=== PATIENT | male | born 1955 | race Caucasian/White ===

== ENCOUNTER 2023-05-04 08:50 | Inpatient (IN) | payer MEDICARE, OTHER, SELFPAY ==
[2023-05-03] VITALS (13 sets, daily range): BP systolic 115–170; BP diastolic 73–104; BMI 33.6; BMI 32.6
--- NOTE | 2023-05-03 11:02 | ED.GENMED ---
History of Present Illness
General
Chief Complaint: Fall
Source: patient
Time Seen by Provider: 05/03/23 10:35
Travel History
Have you had any contact with someone who has COVID-19?: No
Do you have any symptoms of coronavirus? Fever > 100 degrees, chills, cough, shortness of breath, sore throat, loss of taste or smell, muscle aches, or headache?: No
History of Present Illness
History of Present Illness:
67-year-old male presents to the emergency room after being out at the park for an extended period time. Patient typically goes for a walk for half an hour and returned home. After 90 minutes his became concerned and called. The patient
answered the phone and was confused. He evidently told her he had a slip and fall on ice striking the back of his head. He could not find his car. went to the park and did find him. He was awake and interactive but did seem confused. He
was also complaining being very cold. Upon arrival to the emergency room is awake and interactive. believes he is at his baseline at this time. Patient does take Plavix but denies any other oral anticoagulant
Past History
Past History
ED Past Medical History: HTN and NIDDM
ED Past Surgical History: Other (Hernia repair)
Social History
Tobacco: Non-smoker
Living: with family
Phy Exam
Physical Exam
Physical Exam:
General: Awake, Alert, Oriented X3. No acute distress.
Vitals: unremarkable
Head: Atraumatic no significant cephalohematoma
Eyes: Pupils equal, EOMI
Throat: Airway intact, no exudates
Neck: Trachea midline
Lungs: Clear and equal b/l
Heart: Regular rate, no murmurs
Abd: Soft, Nontender, No pulsatile mass
Neuro: Cranial nerves intact, muscle strength equal bilaterally, cerebellar exam normal
Skin: Warm, dry, no rash
Extremities: pulses equal b/l, no edema
Course
Orders/Labs/Results
Orders:
Orders
05/03/23 10:25
CT Head W/o Iv Contrast Urgent
Comment:
Reason For Exam: fall on plavix, confusion
05/03/23 11:00
MR Brain Without Contrast Urgent
Comment:
Reason For Exam: eval for possible falcian suddural
OK for patient to be off Cardiac Monitoring for MRI: Yes
Recent pill cam endoscopy?: No
Pacemaker/Defibrillator?: No
Brain Aneurysm Clips?: No
Have you ever worked with metal? grinding metal? welding?: No
Cochlear(ear) implants?: No
Does Pt have a Temp Sensing Cath?: No
Does the patient have IV access?: Yes
Does the patient have any stents?: No
05/03/23 13:54
Admit/Transfer Patient As Directed
Co-Sign Provider:
Level of Care: Observation services
Assign to:: Telemetry
Physician / Group: Rios
Diagnosis: Subdural Hemorrhage
Reason for Telemetry: CVA/TIA
Date to Stop Telemetry: 05/06/23
Time to Stop Telemetry: 11:00
05/03/23 13:55
Code Status As Directed
Resuscitation Status: Full Code
05/03/23 14:01
CBC/With Diff [Complete Blood Count/With Diff] Stat
CMP [Comprehensive Metabolic Panel] Stat
05/06/23 11:00
DC Protocol for Telemetry ONCE
Vital Signs
Initial and Last Documented VS:
Initial Vital Signs
Pulse Resp BP Pulse Ox
84 17 170/104 97
05/03/23 10:24 05/03/23 10:24 05/03/23 10:24 05/03/23 10:24
Last Documented Vital Signs
Temp Pulse Resp BP Pulse Ox
97.6 F 85 19 155/82 99
05/03/23 10:53 03/24/24 13:46 05/03/23 13:46 05/03/23 13:46 05/03/23 13:46
MDM/Problems Addressed
Differential Diagnosis Includes:
concussion, subdural, intra-cranial bleed
MDM/Problems Addressed:
Patient presents after slipping on ice and striking his head. CT was questionable for a parafalcine subdural. MRI was obtained which confirms a diagnosis. Discussed with neurosurgery. Observe here at [place] as it is quite small and unlikely
to require any sort of intervention.
*Radiology
Radiology exam reviewed: radiology read reviewed
*Pulse Oximetry
Patient hypoxic: no
*Critical Care Note
Total Time (30-74mins, 75-104mins- exclusive of procedures): 35 min
comment:
Critical care statement: A total of 35 minutes of critical care time was provided for this patient. This includes management of unstable vital signs, evaluation of the patient at bedside, reviewing the patient's pertinent medical records, discussion
with consultants, review of old EKGs and review of pertinent medical records. This time with separate from time utilized to perform the aforementioned documented procedures
ED Attending Note
-
Portions of this chart may have been created with voice recognition software.� Occasional wrong word or��sound alike� substitutions may have occurred due to the inherent limitations of voice recognition software.
Discharge Plan
Departure
Patient Disposition: Admit
Date of Disposition: 05/03/23
Time of Disposition: 13:21
Presentation/result/management discussed w/ accepting MD/DO: Hospitalist
Condition: Fair
Discharge Problem:
Subdural bleeding, Head injury
Interventions
Interventions:
*Risk Screen - Suicide Last Done: 05/03/23 10:48
*General Assessment Last Done: 05/03/23 10:48
*Neglect/Abuse Screening Last Done: 05/03/23 10:48
ED- Fall Risk Assessment Last Done: 05/03/23 10:48
*ED COVID-19 Vaccine History Last Done: 05/03/23 10:48
ED-Musculoskeletal Assessment Last Done: 05/03/23 10:49
ED- Neurological Assessment Last Done: 05/03/23 10:52
ED-Skin Assessment Last Done: 05/03/23 10:49
--- NOTE | 2023-05-03 13:57 | HPS.HSE ---
Addendum entered and electronically signed by Gallito Nation MD 05/03/23 14:36:
I saw and examined the patient.
The COMMUNICATIONS DEPARTMENT HEAD or PA's note was reviewed and I agree with the note.
Comment: Pt after mechanical fall found by patient's spouse to be confused after did not come back from a walk usually takes 1/2-hour unclear if he was down on the ground for period of time he was, which is 90 minutes presented to the ED supposedly
back to his baseline but find that he still has some confusion and poor memory to the event. No focal changes on exam no apparent injury to scalp or elsewhere as he fell backwards initial CT imaging showed question of a small subdural hemorrhage
in the falx cerebri was substantiated on MRI. ED staff called neurosurgical on-call who reviewed imaging and felt only need for for observation status neurochecks and repeat CT imaging in a.m. Of note the patient suffered a left pontine stroke
back in July 2022 at that time manifested with some dysarthria that has recovered he has some residual weakness on the right side and also nasolabial droop. Patient after CVA completed a course of dual antiplatelet therapy after 3 months and is on
only on clopidogrel presently which will be held he did not take it today we will repeat another CT scan in a.m. treat underlying hypertension with prior combination of valsartan hydrochlorothiazide continue statin continue diabetic management.
Provide findings at this time are in relation to a postconcussive presentation nonetheless we will have neurosurgery follow-up recommendations regarding resumption of clopidogrel.
Original Note:
Family Physician
-
Family Physician: Alden Noriega
Chief Complaint
-
Fall
History of Present Illness
Patient is a 67-year-old with past medical history of hypertension, hyperlipidemia, diabetes mellitus and left pontine stroke in July 2022 who presents with confusion following a fall earlier today. Patient was out taking a walk in the park when he
slipped and fell on some ice. He states he struck the back of his head during the event. He usually is gone for about 30 minutes, but when he did not return after 90 minutes his became concerned. She called him on his cell phone and he
reported that he fell, was confused and could not find his car. She was able to find him in the park, and subsequently he was brought to the emergency department for evaluation. Workup in the emergency department revealed small subdural hemorrhage
in the falx cerebri.
Medical History
Past Medical History
Past Medical History: Reports Other
Additional Past Medical History:
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
Essential Hypertension
Hyperlipidemia
Diabetes Mellitus, Type II
Past Surgical History: Reports Other
Additional Past Surgical History:
Hernia Repair
Social History
Tobacco: Non-smoker
Personal:
Living: With Family
Family History
Family History: Not pertinent
Allergies / Home Medications
Allergies reflects when Allergies were last updated in [facility].
Home Medications with original date entered in [facility]
Allergy/Medication List:
Allergies
Allergy/AdvReac Type Severity Reaction Status Date / Time
No Known Allergies Allergy Verified 05/03/23 10:23
Home Medications
hydrochlorothiazide 12.5 mg tablet 25 mg PO HS Blood Pressure 07/21/22
metformin 1,000 mg tablet 1,000 mg PO DAILY Diabetes 07/21/22
rosuvastatin 5 mg tablet 5 mg PO Q48H High Cholesterol 07/21/22
clopidogrel 75 mg tablet 75 mg PO DAILY #30 tabs 07/23/22
valsartan 320 mg tablet 320 mg PO HS 05/03/23
Review of Systems
-
A 12 point ROS was completed and negative except as noted: Yes
Constitutional: Denies Fever or Chills
Respiratory: Denies Cough or Trouble Breathing
Cardiac: Denies Chest Pain or Palpitations
Neurological: Denies Dizzy, Weakness or Numbness
Physical Exam
Vital Signs
Vital Signs
Temp Pulse Resp BP Pulse Ox
97.6 F 85 19 155/82 99
05/03/23 10:53 05/03/23 13:46 05/03/23 13:46 05/03/23 13:46 05/03/23 13:46
Physical Exam
General: Comfortable and Conversant
HEENT: Anicteric and Moist mucous membranes
Respiratory: Clear and Non Labored Respirations
Cardiac: S1/S2 and Regular Rhythm; No Murmur
GI: Soft and Non Tender
Rectal: Deferred by Provider
Musculoskeletal: No Clubbing, No Cyanosis and No Edema
Skin: Warm and Dry
Neuro: Awake, Alert, Oriented and No Motor Deficits; No Slurred Speech or Facial Droop
Psych: Calm
Data Reviewed
-
CT Scan: Report Reviewed by me
MRI: Report Reviewed by me
Impression/Plan
-
Acute Subdural Hemorrhage involving Cerebral Falx
-Consult Neurosurgery
-Hold Plavix
-Monitor neuro-checks
-Recheck Head CT in AM
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
-Plavix on hold as above
Essential Hypertension
-Continue valsartan and HCTZ
Hyperlipidemia
-Continue rosuvastatin
Diabetes Mellitus, Type II
-Continue metformin
-Monitor sugars and continue coverage insulin
DVT proph: SCDs
Code Status: Full Code
[2023-05-03 15:03] LABS: % Basophils 0.3 % (0-2); % Eosinophils 0.5 % (0-6); % Immature Granulocytes 0.2 % (0-0.5); % Lymphocytes 27.8 % (20.5-51.1); % Neutrophils 65.2 % (42.2-75.2); Absolute Eosinophils 0.1 10^3/uL (0-0.7); Absolute Lymphocytes 2.7 10^3/uL (1.2-3.4); Absolute Monocytes 0.6 10^3/uL (0.1-0.6); Absolute Neutrophils 6.3 10^3/uL (1.4-6.5); Hematocrit 45.3 % (39.0-52.0); Hemoglobin 15.2 g/dL (13.0-18.0); Mean Corp Hgb Conc. 33.6 g/dL (33.0-37.0); Mean Corpuscular Hgb 29.6 pg (27.0-31.0); Mean Corpuscular Volume 88.1 fL (80.0-94.0); Mean Platelet Volume 10.5 fL (7.4-10.4); Nucleated Red Blood Cells % 0 % (-); Platelet Count 184 10^3/uL (130-400); Red Blood Cell Count 5.14 10^6/uL (4.70-6.10); Red Cell Dist. Width 12.7 % (11.5-14.5); White Blood Cell Count 9.6 10^3/uL (4.8-10.8)
--- NOTE | 2023-05-03 15:10 | CON.NS ---
Consultation
-
Date/Time Consultation Performed: 15:10, 05/03/2023
Performing Provider: Alex
Chief Complaint
History of Present Illness
This is a neurosurgical consultation on a 57-year-old gentleman, with past medical history of pontine stroke, diagnosed in July 2022 on Plavix who presents after sustaining mechanical fall earlier today. Fall was approximate 9 AM. He was taking a
walk in the park, where he slipped and fell. He was in contact with his , and it was reported that he was confused and could not find his car. He presented here to [facility], where a CT scan of the head demonstrated a possible
parafalcine subdural hematoma. He ultimately underwent an MRI of the brain which demonstrated thin/sliver subdural hematoma, but also demonstrated an area of DWI changes within the right frontal lobe. Patient being admitted. Plavix is on hold.
Patient seen and examined. Admits to mild headache. Reports that he did likely hit the back part of his head when he fell. Cannot recall events surrounding the time and around his fall. Reports that he did see a [facility] neurologist 2 weeks ago, and
during evaluation, he was told that he may have likely a 'vascular arterial type of disease' that causes mini strokes.
Review of Systems
-
Attempted review of systems including constitutional, ENT, cardiovascular, respiratory, GI, , neurologic, endocrinologic, hematologic, psychiatric was performed, was negative, except for stated in HPI.
Medication and Allergies
Home Medications
Home Medications
Medication Instructions Recorded
hydrochlorothiazide 12.5 mg tablet 25 mg PO HS Blood Pressure 07/21/22
metformin 1,000 mg tablet 1,000 mg PO DAILY Diabetes 07/21/22
rosuvastatin 5 mg tablet 5 mg PO Q48H High Cholesterol 07/21/22
clopidogrel 75 mg tablet 75 mg PO DAILY #30 tabs 07/23/22
valsartan 320 mg tablet 320 mg PO HS 05/03/23
Allergies
Allergies
Allergy/AdvReac Type Severity Reaction Status Date / Time
No Known Allergies Allergy Verified 05/03/23 10:23
Physical Exam
-
Exam:
Awake, alert, oriented x 3.
Pupils are equal and reactive.
Extraocular movements are full without any nystagmus.
Slight right facial droop, unclear whether this is baseline?
Tongue midline
Motor: 5/5 strength in upper extremities without any pronator drift. 5/5 strength in bilateral lower extremities
Gait not tested
Reflexes symmetric in both upper and lower extremities
Head is normocephalic, small area of erythema over vertex.
Neck is supple
Breathing nonlabored
Abdomen is soft
Extremities are warm
Exams:� CT Head W/o Iv Contrast
PROCEDURE: CT Head W/o Iv Contrast
CLINICAL INDICATION: Patient status post fall. Patient is on blood thinners, on Plavix. Increased confusion. History of previous CVA.
TECHNIQUE: A CT examination of the head was performed without intravenous contrast. Coronal reformatted images were obtained. Automatic exposure control radiation dose reduction technology was utilized.
COMPARISON: Brain MRI 07/22/2022. Head CT 07/21/2022.
FINDINGS:
The ventricles are mildly diffusely enlarged, no midline shift.� There is mild deepening of the sulci diffusely.� There is moderate decrease in attenuation in the periventricular and deep white matter consistent with the previous MRI, most
consistent with moderate chronic microangiopathic ischemia.
Very subtle increased density and mild thickening of the anterior falx, best seen on the coronal images. A very subtle subdural hemorrhage cannot be excluded.
No findings to suggest an acute infarct.
There is no mass or mass effect.
The visualized portions of the paranasal sinuses and orbits are� clear of an acute process. No calvarial fracture.
IMPRESSION:
1. � There is very subtle increased density and mild thickening of the falx, most prominent anteriorly, and a subtle subdural hemorrhage cannot be excluded. MRI is recommended, although acute hemorrhage may be less evident initially.
2. � No findings to suggest an acute infarct.
3. � No mass or mass effect.
4. � No calvarial fracture.
[place] text results to Dr. Engel in the emergency room at 10:50 AM.
Electronically signed by Pennie Herzog MD 05/03/2023 10:52 AM
[employer] Dose Report: Up-to-date CT equipment and radiation dose reduction techniques were employed. CTDIvol: 57.0 mGy. DLP: 823 mGy-cm.
Dictated By: Mino ZARATE,Pennie Parker.
Dictated Date & Time: 05/03/23 1042
Exams:� MR Brain Without Contrast
CPT: 63498
PROCEDURE: MR Brain Without Contrast
CLINICAL INDICATION: Possible falcine subdural. Patient fell. On blood thinners. History of previous subacute infarct in the left salo. Seen on prior brain MRI.
TECHNIQUE: Unenhanced MRI imaging of the brain was performed. Images were obtained in multiple planes using a variety of pulse sequences including T1 weighting, T2 weighting, FLAIR, and diffusion-weighted imaging. Scanned on a 1.5 Charis magnet.
COMPARISON: CT performed earlier today. Brain MRI and MRA 07/22/2022.
FINDINGS: Increased signal intensity on the FLAIR images in the falx, consistent with the concern for a subtle subdural hemorrhage on CT earlier today.
There is a tiny focus of restricted diffusion with decreased signal intensity on the ADC images on axial image 22 series 302 consistent with a tiny focus of nonhemorrhagic infarct. In addition there is a small linear focus of increased signal
intensity in the left cerebellar peduncle, axial image 8 series 302, this does not have decreased signal on the ADC images and may represent a previous area of infarct
The ventricles are mildly enlarged diffusely, without midline shift.� There is mild deepening of the sulci diffusely. There is a significant increase in T2 signal intensity within the deep white matter consistent with moderate chronic
microangiopathic ischemia, similar to the previous exam.
There is no mass or mass effect. � Tiny focus of hemosiderin in the right thalamus unchanged from prior.
The visualized portions of the paranasal sinuses and orbits are within normal limits.� Mastoid air cells are clear.
There is appropriate flow-void in the vessels at the base of the skull.
IMPRESSION:
1. � Tiny focus of restricted diffusion in the high right frontal lobe at the vertex adjacent to the falx consistent with a tiny focus of nonhemorrhagic infarct.
2. � Mild thickening and abnormal signal intensity of the falx, consistent with acute subdural hemorrhage. No midline shift or adjacent parenchymal mass effect.
3. � Chronic Moderate volume loss. 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
4. � Chronic microhemorrhage in the right thalamus.
5. � Results to Dr. Engel in the emergency room at 12:30 PM
I reviewed the noncontrast CT scan of the head performed on 05/03/2023 as well as the brain MRI performed and agree with report above.
Problems
-
Problem Status Onset Code
Subdural bleeding I62.00
Head injury S09.90XA
Assessment / Plan
-
This is a 67-year-old gentleman with a past medical history of left pontine stroke, who now presents after fall, and confusion. Imaging demonstrates a small parafalcine subdural hematoma, but also MRI concurrently confirms a acute Area of
restricted diffusion in the high right frontal lobe which is suspicious for infarction. The small parafalcine subdural hematoma is currently nonoperative in nature.
Recommend neurology consultation regarding workup and management of this new acute infarction. If this is indeed deemed an acute stroke/infarction, risks versus benefits of holding antiplatelet therapy for 1 to 2 weeks versus restarting
antiplatelet therapy as soon as possible must be considered.
At the present time, hold Plavix until repeat CT scan of the head on 05/04/2023.
Maintain close neurological monitoring/checks/IMU.
Maintain head of bed elevation greater than 30 degrees.
Maintain systolic blood pressure strictly less than 140.
Will follow-up.
Patient can go home per my specialty: No
[2023-05-03 15:17] LABS: ALT (SGPT) 19 U/L (0-50); AST (SGOT) 23 U/L (17-59); Albumin 4.1 g/dl (3.5-5.0); Alkaline Phosphatase 66 U/L (38-126); Blood Urea Nitrogen 21 mg/dl (9-20); Calcium 9.3 mg/dl (8.4-10.2); Carbon Dioxide 29 mmol/L (22-30); Chloride 102 mmol/L (98-107); Estimated Creatinine Clearance 86 ml/min; Glucose 185 mg/dl (70-99); Potassium 4.1 mmol/L (3.5-5.1); Sodium 136 mmol/L (135-145); Total Bilirubin 1.2 mg/dl (0.2-1.3); eGFR > 60.00
--- NOTE | 2023-05-03 15:57 | CON.NEURO ---
Consultation
Order
Date of Consultation: 05/03/23
Reason for Consult: Stroke
Neurology consultation
CC: none
HPI: This is a 67-year-old RH man who presented to [facility] on May 03, 2023 with a fall.
According to the patient he was walking in a park before he 'must have slipped' and sustained and administered his fall earlier today. According to Ms. Larson the patient contacted her because he could not find his car and sounded confused. No
reports of motor, sensory, visual deficits
Mr. Larson has a history of the left pontine stroke(07/2022) presenting with right-sided mild hemiparesis with no residual deficits. He states that he has been compliant with the plan Plavix.
ER VS: 170/104, 84, afebrile
PDMP: none
Labs: Glucose�185, normal WBCs,
Brain MRI wo margaret(05/03/2023)-a focus of restricted diffusion in the high right frontal lobe at the vertex adjacent to the falx. Mild thickening and abnormal signal intensity of the falx, consistent with acute subdural hemorrhage.
Chronic moderate volume loss. 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
PMH: left pontine stroke(07/2022), HTN, DLP, DM, sodium, creatinine,
PSH: hernia repair
SH: ; non-smoker; retired district manager primary care sales; plays drums
FH: Father�stroke
All:NKDA
ROS:Constitutional: Negative. Negative for chills, fever and unexpected weight change.
HENT: Negative for ear pain, hearing loss, tinnitus and trouble swallowing.
Eyes: Negative. Negative for photophobia, pain and visual disturbance.
Respiratory: Negative for cough, choking and shortness of breath.
Cardiovascular: Negative for chest pain, palpitations and leg swelling.
Gastrointestinal: Negative for abdominal pain and vomiting.
Endocrine: Negative. Negative for cold intolerance.
Genitourinary: Negative for dysuria, flank pain and urgency.
Musculoskeletal: Negative for back pain, gait problem, neck pain and neck stiffness.
Skin: Positive for occipital ecchymosis
Allergic/Immunologic: Negative. Negative for immunocompromised state.
Neurological: Negative for dizziness, tremors, seizures, speech difficulty, numbness and headaches.
Psychiatric/Behavioral: Negative for behavioral problems, confusion and hallucinations.
General: Well developed. In no acute distress.
Cardio: Regular rate and rhythm without murmur. Extremities are without cyanosis or edema.
Neuro:
Mental Status: Alert, oriented to person, place, and date. Increased processing time. Impaired comprehension. Follows simple commands consistently. Nonfluent. No hemineglect
Cranial Nerves: Pupils are equally round and reactive to light. EOMs full. Visual olvera full to confrontation. No ptosis. No nystagmus. V1-V3 intact to light touch and pinprick bilaterally, symmetric. Face symmetric. Normal hearing AU. The
palate elevated well. SCMs and traps 5/5. Tongue midline. No dysarthria.
Motor: Normal bulk and tone. No pronator or arm drift. Strength 5/5 throughout. No clonus.
Reflexes: Mild grasp bilaterally
Sensory: Normal vibration at the toes
Coordination: No dysmetria or tremor.
Gait: deferred
Skin-occipital ecchymosis, no tongue laceration
Assessment and Plan:
I. Acute R CRISTHIAN territory infarct
II. Acute traumatic falcine SDH
III. Encephalopathy (vascular, posttraumatic?)
-Continue Telemetry monitoring.
-EKG
-Fall precautions.
-Hold antithrombotics
-repeat CT head in 24h from the initial one.
-Lipitor 40 mg QHS.
-Carotid artery Doppler ultrasound
-Cardiology consult for cardioembolic work up
-Please check HbA1C, LDL, b12, TFTs
-PT.
-DVT prophylaxis.
I personally reviewed all radiology and labs along with past medical records pertinent to current medical problems. Total time spent in patient care is 60 minutes.
Thank you for allowing us to participate in the care of this patient. We will continue to follow. Please do not hesitate to contact us with any questions or concerns.
Subjective/Objective
Subjective Data
Date of Service: May 03, 2023
Objective Data
Vital Signs
Temp Pulse Resp BP Pulse Ox
36.4 C 90 27 115/73 97
05/03/23 10:53 05/03/23 15:30 05/03/23 15:30 05/03/23 15:11 05/03/23 15:30
Lab Results
05/03/23 14:41
05/03/23 14:41
Sodium 136 mmol/L (135-145) 05/03/23 14:41
Potassium 4.1 mmol/L (3.5-5.1) 05/03/23 14:41
BUN 21 mg/dl (9-20) H 05/03/23 14:41
Glucose 185 mg/dl (70-99) H 05/03/23 14:41
Calcium 9.3 mg/dl (8.4-10.2) 05/03/23 14:41
Patient Allergies
No Known Allergies Allergy (Verified 05/03/23 10:23)
Medications
-
Home Medications
Medication Instructions Recorded
hydrochlorothiazide 12.5 mg tablet 25 mg PO HS Blood Pressure 07/21/22
metformin 1,000 mg tablet 1,000 mg PO DAILY Diabetes 07/21/22
rosuvastatin 5 mg tablet 5 mg PO Q48H High Cholesterol 07/21/22
clopidogrel 75 mg tablet 75 mg PO DAILY #30 tabs 07/23/22
valsartan 320 mg tablet 320 mg PO HS 05/03/23
Vital Signs and Labs
-
Vital Signs and Labs:
Vital Signs
Temp Pulse Resp BP Pulse Ox
36.4 C 90 27 115/73 97
05/03/23 10:53 05/03/23 15:30 05/03/23 15:30 05/03/23 15:11 05/03/23 15:30
Lab Results
05/03/23 14:41
05/03/23 14:41
Sodium 136 mmol/L (135-145) 05/03/23 14:41
Potassium 4.1 mmol/L (3.5-5.1) 05/03/23 14:41
BUN 21 mg/dl (9-20) H 05/03/23 14:41
Glucose 185 mg/dl (70-99) H 05/03/23 14:41
Calcium 9.3 mg/dl (8.4-10.2) 05/03/23 14:41
Home Medications
-
Home Medications
hydrochlorothiazide 12.5 mg tablet 25 mg PO HS Blood Pressure 07/21/22
metformin 1,000 mg tablet 1,000 mg PO DAILY Diabetes 07/21/22
rosuvastatin 5 mg tablet 5 mg PO Q48H High Cholesterol 07/21/22
clopidogrel 75 mg tablet 75 mg PO DAILY #30 tabs 07/23/22
valsartan 320 mg tablet 320 mg PO HS 05/03/23
[2023-05-03] MEDS: CRESTOR 5 MG PO (17:43)
[2023-05-03] MEDS: APRESOLINE 5 MG IV (17:43)
[2023-05-03] MEDS: NOVOLOG FLEXPEN-MODERATE RESISTANCE SC (17:47)
[2023-05-03 17:56] LABS: Glucose - Point of Care 111 mg/dl (70-99)
--- NOTE | 2023-05-03 18:12 | PTCARENOTE ---
Rec'd pt on admission from ED. Oriented to unit. Hydralazine given as ordered for BP 159 systolic. Pt AAO x3, neuro intact. Educated on HOB rest to 30 degrees. lungs are clear. Pt ambulated with min assist from stretcher to bed. Resting comfortably.
[2023-05-03 18:55] LABS: HDL Cholesterol 84 mg/dl; LDL Cholesterol, Calculated 34 mg/dl; Total Cholesterol 135 mg/dl (50-199); Triglyceride 85 mg/dl (10-149); Very Low Density Lipoprotein 17 mg/dl (0-30)
[2023-05-03 19:28] LABS: TSH Reflex To Free T4 1.52 uIU/ml (0.47-4.68)
[2023-05-03 19:47] LABS: Vitamin B12 443 pg/ml (239-931)
[2023-05-03] MEDS: DIOVAN 320 MG PO (21:39)
[2023-05-03] MEDS: ORETIC 25 MG PO (21:40)
[2023-05-03 21:47] LABS: Glucose - Point of Care 133 mg/dl (70-99)
[2023-05-04] VITALS (14 sets, daily range): BP systolic 108–156; BP diastolic 73–110; PULSE 88; O2SAT 97; BMI 32.5
[2023-05-04] MEDS: APRESOLINE 5 MG IV ×2 (00:40→10:08)
[2023-05-04] MEDS: NOVOLOG FLEXPEN-MODERATE RESISTANCE 1 UNITS SC (07:21)
[2023-05-04 07:31] LABS: Glucose - Point of Care 152 mg/dl (70-99)
[2023-05-04] MEDS: GLUCOPHAGE 1000 MG PO (08:08)
--- NOTE | 2023-05-04 08:22 | W.PN.NEURO.1 ---
Today's Communication / Plan
-
-Monitor on cardiac telemetry and check transthoracic echocardiogram
-Neurologic checks NIH stroke scale
-Would maintain systolic blood pressure less than 140
-Goal normoglycemia
-Continue statin
-Appreciate neurosurgery input
-Secondary prevention of stroke treating diabetes, hyperlipidemia, hypertension
Given ischemic stroke finding would aim to restart clopidogrel relatively soon, would favor restarting clopidogrel 3 to 5 days [address] the initial CT head finding on 05/02
Will follow
Neuro Assessment/Plan
Assessment
67-year-old male with a previous minor stroke July 2022 maintained on chronic Plavix therapy as well as history of hypertension diabetes presenting the hospital after a fall and mild confusion afterwards he says that he slipped on some black ice
walking around late [place] over the weekend
CT head noncontrast showed a midline subdural hematoma near the falx. Has been stable on repeat CT head and brain MRI.
Brain MRI shows a small acute infarction on the right frontal lobe near the midline.
Carotid ultrasound less than 50% stenosis bilaterally.
Patient does not recall any focal symptoms of left-sided leg weakness, did show some confusion afterwards which is improved.
It is possible that the acute stroke led to confusion and balance or ambulatory issues then leading to his fall and the subdural hematoma from the fall. Less likely that the head injury provoked the ischemic stroke.
Patient's brain MRI shows significant small vessel disease throughout the white matter of the hemispheres bilaterally
Subjective/Objective
Subjective Data
Date of Service: May 04, 2023
No acute events, mild headache
Objective Data
Vital Signs
Temp Pulse Resp BP Pulse Ox
98.6 F 95 26 116/80 94
05/04/23 03:59 05/04/23 04:00 05/04/23 04:00 05/04/23 04:00 05/04/23 04:00
Lab Results
05/03/23 14:41
05/03/23 14:41
Sodium 136 mmol/L (135-145) 05/03/23 14:41
Potassium 4.1 mmol/L (3.5-5.1) 05/03/23 14:41
BUN 21 mg/dl (9-20) H 05/03/23 14:41
Glucose 185 mg/dl (70-99) H 05/03/23 14:41
Calcium 9.3 mg/dl (8.4-10.2) 05/03/23 14:41
LDL Cholesterol, Calc 34 mg/dl 05/03/23 17:56
Vitamin B12 443 pg/ml (239-931) 05/03/23 17:56
Patient Allergies
No Known Allergies Allergy (Verified 05/03/23 10:23)
Review of Systems
-
History Source: Patient
All other systems: Reviewed and negative
Constitutional: No Symptoms
EENT: No Symptoms Reported
Respiratory: No Symptoms
Cardiac: No Symptoms
Abdomen/GI: No Symptoms
Genitourinary: No Symptoms
Musculoskeletal: No Symptoms
Skin: No Symptoms
Neuro: Headache
Endocrine: No Symptoms
Hematologic / Lymphatic: No Symptoms
Allergy / Immunology: No Symptoms
Physical Exam
-
General: Comfortable
Eyes: No Ptosis
HEENT: Normocephalic
Neck: No Bruits Bilaterally
Respiratory: Clear to Auscultation
Cardiac: Regular Rhythm
GI: Normal Bowel Sounds
Skin: Unremarkable
Extremities: No Clubbing
Psych: Unremarkable
Extended Neurological Exam
Mood & Affect: Mood Unremarkable and Affect Unremarkable
Attention Span & Concentration: Awake, Alert and Interactive
Memory: Unremarkable
Tremor: Hand Tremor Absent
Involuntary Movement: None
Speech: Quality Unremarkable and Quantity Unremarkable; Negative Expressive Aphasia, Receptive Aphasia or Dysarthric
Cranial Nerve II: Left Eye: Pupillary Reactivity Unremarkable and Pupillary Size Unremarkable
Cranial Nerve II: Right Eye: Pupillary Reactivity Unremarkable and Pupillary Size Unremarkable
Cranial Nerves III, IV, : Extraocular Movement: Extraocular Movement Full in all Directions
Cranial Nerve VII: Facial Symmetry: Normal Facial Symmetry
Muscle Strength, Overall: Full Throughout
Muscle Bulk & Tone: Bulk Unremarkable
Pronator Drift: No Drift in Upper Extremities
Deep Tendon Reflexes: Trace Throughout
Vibration Sensation: Unremarkable
Touch Sensation: Unremarkable
Coordination: Rwojkb-bibu-tejetn Testing Unremarkable
Babinski Sign: Absent Bilaterally
Data Reviewed
-
CT Head: Report Reviewed and Image Reviewed
MRI Head: Report Reviewed and Image Reviewed
Carotid Ultrasound: Report Reviewed
Echocardiogram: Ordered and Pending
Labs: Report Reviewed
--- NOTE | 2023-05-04 09:40 | CM ---
Patient seen at bedside. Patient states he lives with in a 2 story home with no DME. Patient PCP is Dr. Noriega and patient uses the [facility] on [facility]. Patient S/p CVA in July and was admitted under OBS 05/03/23 but now changed to INP
status per orders. CM updated patient. 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 Patient stated that he was awaiting results of testing. CM will continue to follow for discharge planning needs.
Plan; home with VN vs outpatient PT/OT pending physician recommendations and PT/OT assessment.
[2023-05-04 10:10] LABS: Glycohemoglobin (HgbA1c) 6.7 % (4.0-5.6)
[2023-05-04] MEDS: NOVOLOG FLEXPEN-MODERATE RESISTANCE SC (11:30)
[2023-05-04 11:41] LABS: Glucose - Point of Care 118 mg/dl (70-99)
--- NOTE | 2023-05-04 13:16 | PN.NS ---
Subjective
-
Patient seen and examined. Admits to minimal headache. Otherwise denies any nausea, vomiting
Physical Exam
-
Exam:
Exam:
Awake, alert, oriented x 3.
Pupils are equal and reactive.
Extraocular movements are full without any nystagmus.
Slight right facial droop, unclear whether this is baseline?
Tongue midline
Motor: 5/5 strength in upper extremities without any pronator drift.� 5/5 strength in bilateral lower extremities
Gait not tested
Reflexes symmetric in both upper and lower extremities
Head is normocephalic, small area of erythema over vertex.
Neck is supple
Breathing nonlabored
Abdomen is soft
Extremities are warm
Follow-up CT scan of the head performed on 05/04/2023 was reviewed. Stable appearance of interhemispheric hyperdensity, consistent with sliver parafalcine subdural hematoma. I did review the report, while it mentions that the radiologist felt that
there were no acute findings, review of the MRI of the brain on 05/03/2023 does indeed confirm that there is a sliver parafalcine subdural hematoma present.
Problems
-
Problem Status Onset Code
Subdural bleeding I62.00
Head injury S09.90XA
Assessment / Plan
-
This is a 67-year-old gentleman with a past medical history of left pontine stroke, who now presents after fall, and confusion. Imaging demonstrates a small parafalcine subdural hematoma, but also MRI concurrently confirms a acute Area of
restricted diffusion in the high right frontal lobe which is suspicious for infarction. The small parafalcine subdural hematoma is nonoperative in nature, and stable on repeat imaging.
Given stability on CT scan of the head, and stable neurological examination, okay to resume Plavix on 05/05/2023.
Okay for chemical DVT prophylaxis.
Okay to transfer out of IMU to regular floor.
Okay for discharge from neurosurgical standpoint.
Patient will need to see me in the office in approximately 2 to 3 weeks with a follow-up noncontrast head CT.
Patient provided my contact information/business card.
Today's Communication
-
Discussed with hospital medicine, patient, patient's nurse, and neurology
--- NOTE | 2023-05-04 15:44 | PTOTSP ---
Pt feels he is at baseline. He is independent with ambulation on level surface and stairs without need for any assistive devices and is steady on his feet in his shoes. No PT needs were identified. Will sign off.
--- NOTE | 2023-05-04 16:02 | W.PN.HOSP.TC ---
Addendum entered and electronically signed by Dione Marie MD 05/04/23 16:21:
More than 30 minutes spent in discharge including
Final examination of the patient
Summarizing hospital stay
Instructions for continuing care to all relevant caregivers
Preparation of discharge records, prescriptions, and referral forms
Total time spent (in minutes): 42
Original Note:
Today's Communication/Plan
-
transfer to tele
resume Plavix in AM
Assessment / Plan
Assessment / Plan
Acute Subdural Hemorrhage involving Cerebral Falx
Acute CVA R frontal lobe
Hx of Left Pontine Stroke in July 2022
- hemorrhage confirmed on MRI d/w Neuro and NeuroSx
- repeat CT stable
- Carotid ultrasound less than 50% stenosis bilaterally.
- Echo: stable, no changes since prior
- plan is to resume Plavix tomorrow morning
- PT/OT
Essential Hypertension
- continue valsartan and HCTZ
Hyperlipidemia
- continue rosuvastatin
Diabetes Mellitus, Type II
- continue metformin
- monitor sugars and continue coverage insulin
DVT ppx: SCDs
Code: Full
Anticipated Discharge: Within 24 hours
Subjective/Interval History
-
Date of Service: May 04, 2023
mild headache otherwise feels ok
walked well in halls
Objective Data
-
Vital Signs:
Vital Signs
Temp Pulse Resp BP Pulse Ox
98.1 F 96 24 122/83 94
05/04/23 11:23 05/04/23 14:00 05/04/23 14:00 05/04/23 15:17 05/04/23 14:00
I&O
05/03/23 05/04/23 05/05/23
06:59 06:59 06:59
Intake Total 480 / 480
Balance 480 / 480
Physical Exam
-
General: No Apparent Distress
HEENT: Normocephalic and Atraumatic
Respiratory: Negative Wheezes or Rales
Cardiac: Regular Rhythm and S1/S2
GI: Soft and Nontender
Genito-urinary: No Costovertebral Tender
Musculoskeletal: No Edema
Neuro: AO x 3
Hematologic / Lymphatic: No Lymphadenopathy
Psych: Calm
Data Reviewed
-
Total Time Spent with Patient (in minutes): 42
Labs: Labs Reviewed by me
--- NOTE | 2023-05-04 16:21 | W.DS.TRANS ---
DC Summary - [place]
-
Discharge Instructions:
Discharge Diagnosis/Procedures acute CVA and subdural hematoma
Diet Diabetic, Carb Controlled,Low Fat
Activity As tolerated
Others Tests CT head in 2-3 weeks prior to neurosurgeon
appointment
Other Services PT,OT
Instructions:
Stand-Alone Forms:
Changes to Home Medications: No
Discharge Medications:
DC Medications w/original date entered in [employer]
hydrochlorothiazide 12.5 mg tablet 25 mg PO HS Blood Pressure 07/21/22
metformin 1,000 mg tablet 1,000 mg PO DAILY Diabetes 07/21/22
rosuvastatin 5 mg tablet 5 mg PO Q48H High Cholesterol 07/21/22
clopidogrel 75 mg tablet 75 mg PO DAILY #30 tabs 07/23/22
valsartan 320 mg tablet 320 mg PO HS Blood Pressure 05/03/23
Home Medication Changes
Pending Results: No
Total time spent discharging patient (in min): 42
--- NOTE | 2023-05-04 16:26 | CM ---
Patient for discharge home today. Patient was changed to INP. IMM will be provided. Patient physician providing out patient script for follow up. Family to transport patient home.
--- NOTE | 2023-05-04 16:36 | PTCARENOTE ---
Pt ambulated in [place] with PT without any difficulty. Walking briskly. vital signs stable. Dr. Marie discharged pt.
== END 2023-05-04 16:44 | disposition home or self-care (01) | DRG 83 ==
LOC: IMU 08:50
PROVIDERS: Physician Assistant Medical; ADMITTING PHYSICIAN Internal Medicine; ATTENDING PHYSICIAN Internal Medicine; EMERGENCY PHYSICIAN Emergency Medicine; FAMILY PHYSICIAN Family Medicine; OTHER PHYSICIAN Neurological Surgery; OTHER PHYSICIAN Psychiatry & Neurology Neurology
DX: S06.5XAA Traumatic subdural hemorrhage with loss of consciousness status unknown, initial encounter (principal); G93.40 Encephalopathy, unspecified; Z86.73 Personal history of transient ischemic attack (TIA), and cerebral infarction without residual deficits; I11.9 Hypertensive heart disease without heart failure; E78.5 Hyperlipidemia, unspecified; E11.9 Type 2 diabetes mellitus without complications; Z79.02 Long term (current) use of antithrombotics/antiplatelets; Z79.84 Long term (current) use of oral hypoglycemic drugs; W00.0XXA Fall on same level due to ice and snow, initial encounter
CPT/HCPCS: 70450; 70551; 80053; 80061; 82607; 82962; 83036; 84443; 85025; 93306; 93880; 97162; 99291

== ENCOUNTER → 2023-05-19 06:58 | Outpatient (REF) | payer MEDICARE, OTHER, SELFPAY | LOC: RAD 06:58 | PROVIDERS: ATTENDING PHYSICIAN Neurological Surgery; FAMILY PHYSICIAN Family Medicine; REFERRING PHYSICIAN Internal Medicine | DX: S06.5X0A Traumatic subdural hemorrhage without loss of consciousness, initial encounter (principal) | CPT/HCPCS: 70450 ==